=== PATIENT | female | born 2000 | race Caucasian/White ===

== ENCOUNTER 2023-04-02 20:54 | Emergency (ER) | payer MEDICAID, SELFPAY ==
[2023-04-02 21:05] VITALS: BP 151/84; PULSE 71; RESP 18; TEMP 36.9; O2SAT 100; BMI 19.5
--- NOTE | 2023-04-02 21:30 | ED_ITS ---
HPI - Female Genitourinary General Chief complaint: Vaginal Bleeding Stated complaint: VAGNIAL BLEEDING Time Seen by Provider: 04/02/23 21:27 Source: patient and family Mode of arrival: walk-in Limitations: no limitations History of Present Illness HPI Narrative: [id number] believes she is about 12 weeks . Had pelvic US last at [facility]. States she had no symptoms and the study was done to qualify for insurance. States the US was inadequate study . States she was told she had not drink enough water. They only able to see the Fecal sac. She and her mother do not recall any comments about tubal and she was rescheduled for ultrasound this upcoming week. Yesterday started spotting some and again this AM. At work tonight at [employer] and described passing clots in the commode. No pain. Now presents because of passing blood clots. No light headiness MD elicited complaint: Reports vaginal bleeding Related Data Home Medications Medication Instructions Recorded Confirmed No Known Home Medications 04/02/23 04/02/23 Allergies Allergy/AdvReac Type Severity Reaction Status Date / Time No Known Drug Allergies Allergy Verified 04/02/23 21:09 Review of Systems ROS Status of ROS 10 or more systems reviewed and unremarkable except as noted in history and below Exam Constitutional Vital Signs, click to edit/add: Last Vital Signs Temp 98.4 F 04/02/23 21:05 Pulse 71 04/02/23 21:05 Resp 18 04/02/23 21:05 BP 151/84 H 04/02/23 21:05 Pulse Ox 100 04/02/23 21:05 O2 Del Method Room Air 04/02/23 21:05 Common normals: no apparent distress, average body habitus, oriented x3, no limitations, healthy appearing and well nourished Eye Common normals: PERRL, EOMs intact bilaterally, conjunctivae normal and no scleral icterus Neck & C-Spine Common normals: full ROM and no lymphadenopathy Respiratory Common normals: normal respiratory effort, no retractions, no use of accessory muscles and clear to auscultation bilaterally Cardio Common normals: regular rate, regular rhythm, S1 normal heart sound, S2 normal heart sound and no gallops GI Common normals: Normal to inspection, nondistended, normoactive bowel sounds present, soft to palpation and non-tender Extremity Common normals: normal to inspection and full ROM Neuro Common normals: oriented x3, CN's II-XII intact bilaterally and moves all extremities Psych Appearance: grossly normal Course Vital Signs Vital signs: Vital Signs Temperature 98.4 F 04/02/23 21:05 Pulse Rate 71 04/02/23 21:05 Respiratory Rate 18 04/02/23 21:05 Blood Pressure 151/84 H 04/02/23 21:05 Pulse Oximetry 100 04/02/23 21:05 Oxygen Delivery Method Room Air 04/02/23 21:05 Temperature 98.4 F 04/02/23 21:05 Pulse Rate 71 04/02/23 21:05 Respiratory Rate 18 04/02/23 21:05 Blood Pressure 151/84 H 04/02/23 21:05 Pulse Oximetry 100 04/02/23 21:05 Oxygen Delivery Method Room Air 04/02/23 21:05 MDM - Female Genitourinary MDM Narrative Medical decision making narrative: G1 12 week presents with vaginal bleeding. had pelvic ultrasound last week at [facility]. study was limited due to inadequate intake of water by her to feel her bladder. She was informed they did see the fecal sac but not much else and rescheduled her US for this upcoming week. Started spotting yesterday and tonight passing some clots. Abdominal exam is neg. Pelvic exam : possible products of conception noted at the OS. Labs ordered including Rh factor, CBC and Quantitative HCG patient blood type is 0+. lab results reviewed with she and her mother. they are informed of what appears to be likely miscarriage and should follow up with Dr Bond Lab Data Labs: Lab Results 04/02/23 Range/Units 21:45 WBC 8.3 (4.0-11.0) 10^3/uL RBC 3.87 L (4.20-5.40) 10^6/uL Hgb 11.5 L (12.0-16.0) g/dL Hct 34.4 L (36.0-48.0) % MCV 88.9 (81.0-99.0) fL MCH 29.7 (26.7-34.0) pg MCHC 33.4 (29.9-35.2) g/dL RDW 12.1 (11.0-15.0) % Plt Count 207 (150-450) 10^3/uL MPV 10.5 (9.5-13.5) fL Neut % (Auto) 49.3 (43.0-75.0) % Lymph % (Auto) 17.4 L (20.5-60.0) % Gove % (Auto) 7.9 (1.7-12.0) % Eos % (Auto) 24.4 H (0.9-7.0) % Baso % (Auto) 0.8 (0.2-2.0) % Neut # (Auto) 4.1 (1.4-6.5) 10^3/uL Lymph # (Auto) 1.4 (1.2-3.8) 10^3/uL Gove # (Auto) 0.7 (0.3-0.8) 10^3/uL Eos # (Auto) 2.0 H (0.0-0.7) 10^3/uL Baso # (Auto) 0.1 (0.0-0.1) 10^3/uL Abs Immat Gran (auto) 0.02 (0.00-0.03) 10^3/uL Imm/Tot Granulo (auto) 0.2 (0.0-0.5) % HCG, Quant 6831 mIU/mL Blood Type O Positive Discharge Plan Discharge Chief Complaint: Vaginal Bleeding Clinical Impression: Threatened Patient Disposition: Home, Self-Care Prescriptions / Home Meds: No Action No Known Home Medications Instructions: Threatened Miscarriage (ED) Additional Instructions: follow up with Dr Bond . call tomorrow Stand Alone Forms: Portal Instructions Referrals: Larisa Trevino [Primary Care Provider] - 1 week
[2023-04-02 21:59] LABS: Basophils Absolute Auto 0.1 10^3/uL (0.0-0.1); Basophils Percent Auto 0.8 % (0.2-2.0); Eosinophils Percent Auto 24.4 % (0.9-7.0); Hematocrit 34.4 % (36.0-48.0); Hemoglobin 11.5 g/dL (12.0-16.0); Immature Granulocytes Abs Auto 0.02 10^3/uL (0.00-0.03); Immature Granulocytes Pct Auto 0.2 % (0.0-0.5); Lymphocytes Absolute Auto 1.4 10^3/uL (1.2-3.8); Lymphocytes Percent Auto 17.4 % (20.5-60.0); Mean Corpuscular HGB Conc 33.4 g/dL (29.9-35.2); Mean Corpuscular Hemoglobin 29.7 pg (26.7-34.0); Mean Corpuscular Volume 88.9 fL (81.0-99.0); Mean Platelet Volume 10.5 fL (9.5-13.5); Monocytes Absolute Auto 0.7 10^3/uL (0.3-0.8); Monocytes Percent Auto 7.9 % (1.7-12.0); Neutrophils Absolute Auto 4.1 10^3/uL (1.4-6.5); Neutrophils Percent Auto 49.3 % (43.0-75.0); Platelet Count 207 10^3/uL (150-450); Red Blood Count 3.87 10^6/uL (4.20-5.40); Red Cell Distribution Width 12.1 % (11.0-15.0); White Blood Count 8.3 10^3/uL (4.0-11.0)
[2023-04-02 22:39] LABS: HCG Quantitative 6831 mIU/mL
--- NOTE | 2023-04-03 14:39 | US_ITS ---
The [address] [address] Patient Name: KAYY REESE MRN: [id number] date: 2000 Sex: F Assigned Patient Location: ER Current Patient Location: ER Accession/Order Number: [id number] Exam Date: 04/03/2023 14:50 Report Date: 04/03/2023 16:11 At the request of: JARON LYNN Procedure: US OB transvaginal EXAM: Ultrasound OB pelvis INDICATION: 23 years old Female presenting with vaginal bleeding. COMPARISON: No prior ultrasound available for comparison at the time of this dictation. TECHNIQUE: Transabdominal and transvaginal ultrasound with grayscale and color Doppler imaging. FINDINGS: No beta hCG value available at the time of this dictation. Retroverted uterus with grossly normal myometrial echotexture. Thickened endometrium with 0.4 x 0.3 x 0.8 cm cystic collection/cyst within the endometrial canal. Closed Cervix: 2.9 cm in length Right ovary: 1.8 x 1.3 x 1.5 cm Left ovary: 2.1 x 1.7 x 2.2 cm 1.3 x 1.1 x 1.2 cm dominant follicle within the left ovary. Bilateral ovaries demonstrate color Doppler flow. No free fluid
== END 2023-04-02 23:08 | disposition home or self-care (01) ==
PROVIDERS: Physician Assistant; Emergency Provider Internal Medicine; PCP Nurse Practitioner
DX: O20.0 Threatened abortion (principal); Z3A.12 12 weeks gestation of pregnancy
CPT/HCPCS: 36415; 76817; 84702; 84703; 85025; 86900; 86901; 99283

== ENCOUNTER 2023-04-03 14:30 | Outpatient (OUT) | payer OTHER, SELFPAY ==
--- NOTE | 2023-04-03 14:30 | US_ITS ---
The [address] [address] Patient Name: KAYY REESE MRN: [id number] date: 2000 Sex: F Assigned Patient Location: US Current Patient Location: US Accession/Order Number: [id number] Exam Date: 04/03/2023 14:40 Report Date: 04/03/2023 16:11 At the request of: BARBARA DIGGS Procedure: US OB transvaginal EXAM: Ultrasound OB pelvis INDICATION: 23 years old Female presenting with vaginal bleeding. COMPARISON: No prior ultrasound available for comparison at the time of this dictation. TECHNIQUE: Transabdominal and transvaginal ultrasound with grayscale and color Doppler imaging. FINDINGS: No beta hCG value available at the time of this dictation. Retroverted uterus with grossly normal myometrial echotexture. Thickened endometrium with 0.4 x 0.3 x 0.8 cm cystic collection/cyst within the endometrial canal. Closed Cervix: 2.9 cm in length Right ovary: 1.8 x 1.3 x 1.5 cm Left ovary: 2.1 x 1.7 x 2.2 cm 1.3 x 1.1 x 1.2 cm dominant follicle within the left ovary. Bilateral ovaries demonstrate color Doppler flow. No free fluid US/US OB transvaginal IMPRESSION: 1. Subcentimeter cyst/cystic nodule within the endometrial canal. This finding can represent an early intrauterine gestational sac. Lack of beta hCG value limits evaluation. Recommend serial beta hCG evaluation with short interval follow-up if clinically indicated. Electronically authenticated by: ALVARO FLYNN Date: 04/03/2023 16:11
== END 2023-04-04 00:02 | disposition home or self-care (01) ==
LOC: US 04-04 11:00
PROVIDERS: PCP Nurse Practitioner; Visit Provider Obstetrics & Gynecology
DX: O46.90 Antepartum hemorrhage, unspecified, unspecified trimester (principal); Z3A.00 Weeks of gestation of pregnancy not specified
CPT/HCPCS: 76817

== ENCOUNTER 2023-04-11 12:17 | Outpatient (RCR) | payer OTHER, SELFPAY ==
[2023-04-11 12:50] LABS: HCG Quantitative 50 mIU/mL
[2023-04-17 14:56] LABS: HCG Quantitative 10 mIU/mL
== END 2023-05-08 08:31 | disposition home or self-care (01) ==
LOC: LAB 12:17
PROVIDERS: PCP Nurse Practitioner; Visit Provider Obstetrics & Gynecology
DX: O46.90 Antepartum hemorrhage, unspecified, unspecified trimester (principal); Z3A.00 Weeks of gestation of pregnancy not specified
CPT/HCPCS: 36415; 84702